=== PATIENT | female | born 1995 ===

== ENCOUNTER 2020-07-05 16:59 | Emergency (ER) | payer OTHER ==
[~2020-07-05] VITALS: Ht 170.2 cm; Wt 88.5 kg
[2020-07-05] MEDS ORDERED: TETRACAINE HCL 0.5% OPHT DROP 2 ML BOTTLE ONE (17:18)
[2020-07-05] MEDS ORDERED: FLUORESCEIN SODIUM 1 MG STRIP ONE (17:19)
--- NOTE | 2020-07-05 17:48 | NUR ---
Patient discharged to home in stable condition. Written and verbal after care instructions given. Patient verbalizes understanding of instructions. Stressed follow up or return to ER for worsening s/s.
== END 2020-07-05 17:48 | disposition home or self-care (01) ==
LOC: ER 17:03
DX: H20.9 Unspecified iridocyclitis (principal)
CPT/HCPCS: A4663